=== PATIENT | female | born 1965 | race Native Hawaiian/Other Pacific Islander ===

== ENCOUNTER 2017-10-14 13:09 | Emergency (ER) | payer OTHER ==
[~2017-10-14] VITALS: Ht 152.4 cm; Wt 54.4 kg
[2017-10-14 13:16] VITALS: BP 123/83; TEMP 98.3
== END 2017-10-14 14:08 | disposition left against medical advice (07) ==
LOC: ED 13:09
DX: R51 Headache (principal); W19.XXXA Unspecified fall, initial encounter
CPT/HCPCS: 99281